=== PATIENT | male | born 2000 | race Caucasian/White ===

== ENCOUNTER 2019-08-21 10:34 | Day surgery (SDC) | payer OTHER ==
[2019-08-20 12:13] VITALS: BMI 22.7
[~2019-08-21 10:34] MED LIST: ALBUTEROL NEB (CONC) 2.5 MG/0.5 ML INHALATION ONE; ATROPINE SULFATE 0.4 MG/ML 1 ML VIAL IM ONE; LIDOCAINE 2% (PF) 20 MG/ML 5 ML VIAL INHALATION ONE; LIDOCAINE VISCOUS 300 MG/15 ML CUP MUCOUS MEM ONE; SODIUM CHLORIDE 0.9% 1,000 ML IV SCH
[2019-08-21 11:20] LABS: Glucose,Whole Blood 98 mg/dL (75-99)
[2019-08-21] MEDS ORDERED: LACTATED RINGERS 1,000 ML IV ONE (11:21)
[2019-08-21] MEDS ORDERED: LIDOCAINE 1% (10MG/ML) FOR IV START INTRADERMA ONE (11:21)
[2019-08-21] MEDS ORDERED: ONDANSETRON 4 MG/2 ML VIAL IVP ONE (11:29)
[2019-08-21] MEDS ORDERED: MIDAZOLAM 2 MG/2 ML VIAL ONE (11:58)
[2019-08-21] MEDS ORDERED: SUCCINYLCHOLINE CHLORIDE 100 MG/5 ML SYR IV ONE (11:58)
[2019-08-21] MEDS ORDERED: LIDOCAINE 1% INJ 10MG/ML (20 ML MDV) ONE (11:58)
[2019-08-21] MEDS ORDERED: diphenhydrAMINE 50 MG/ML 1 ML VIAL ONE (11:58)
[2019-08-21] MEDS ORDERED: PROPOFOL 10 MG/ML 20 ML VIAL IV ONE (11:58)
[2019-08-21] MEDS ORDERED: LIDOCAINE 2% INJ 20 MG/ML INTRATRACH ONE (12:09)
--- NOTE | 2019-08-21 12:32 | PCN ---
PROCEDURE NOTE PROCEDURE: Bronchoscopy BAL airway examination, therapeutic lavage. PREOPERATIVE DIAGNOSIS: Severe chronic bronchial asthma exacerbation. POSTOPERATIVE DIAGNOSIS: Severe chronic bronchial asthma exacerbation. The BAL took place in the right middle lobe. Anesthesia provided general anesthesia. The patient was adequately intubated for the procedure. There was informed consent and universal timeout. I spoke to the father before the procedure. BARRELHEAD INSPECTOR: John Quiros MD After the patient was adequately sedated and fully anesthetized and on the mechanical ventilator, the bronchoscope was inserted through the bronchoscope adapter connected to the endotracheal tube. The airway was evaluated. The tip of the endotracheal tube was above the tracheal shayna. The distal trachea appeared very erythematous. The right and left mainstem were topicalized. There were thick secretions noted throughout both lungs. Airway findings were similar. The patient had diffuse airway erythema and hyperemia. The airways were very inflamed. There was vascular engorgement. There was purulent material noted throughout particularly in the lower lobes. The bronchoscope was wedged into the right middle lobe. The BAL took place. The fluid will be sent for analysis. Additional secretions were noted throughout both lungs and the secretions were removed with saline lavage. The patient tolerated the procedure well. There was no immediate complication. The bronchoscope was withdrawn. There was no bleeding. No dominant mass or tumor. The patient will be recovered. I will speak to the patient's father. The patient tolerated the procedure well. MMODL / IJN: [id number] /
[2019-08-21 12:48] VITALS: TEMP 98.1
[2019-08-21 12:49] VITALS: RESP 16
[2019-08-21 13:34] VITALS: BP 134/84; PULSE 89
[2019-08-21 16:11] LABS: Appearance,BF Cloudy; Color,BF Colorless; RBC, Body Fluid 50 /uL
[2019-08-21 16:14] LABS: Mononuclear WBC,Body Fluid 9 %; Polynuclear WBC,Body Fluid 91 %; Total Cells Counted,Body Fluid 100
[2019-08-22 08:39] LABS: Nucleated Cells, Body Fluid 2960 /uL
== END 2019-08-21 13:44 | disposition home or self-care (01) ==
LOC: ORWHC2ENDO 10:34
PROVIDERS: ATTEND Internal Medicine Critical Care Medicine
DX: J45.901 Unspecified asthma with (acute) exacerbation (principal); R84.6 Abnormal cytological findings in specimens from respiratory organs and thorax; Z79.899 Other long term (current) drug therapy; Z79.51 Long term (current) use of inhaled steroids; Z90.89 Acquired absence of other organs; Z96.22 Myringotomy tube(s) status; Z98.890 Other specified postprocedural states; Z87.01 Personal history of pneumonia (recurrent)
CPT/HCPCS: 94640; 88108; 88305; 89050; 87252; 87070; 87205; 87116; 87102; 87206; 31624; J2001 ×3; J2250; J0461; J1200; J2405; J0330; J2704; 87496; 87498; 87502; 87529; 87634; 87798